=== PATIENT | male | born 2000 | race Caucasian/White ===

== ENCOUNTER 2022-10-21 01:17 | Emergency (ER) | payer MEDICARE ==
[~2022-10-21] VITALS: Ht 160 cm; Wt 73.0 kg
[2022-10-21 04:35] VITALS: BP 122/82
== END 2022-10-21 04:42 | disposition home or self-care (01) ==
LOC: ER 01:17
DX: F07.81 Postconcussional syndrome (principal); S01.81XA Laceration without foreign body of other part of head, initial encounter; Y00.XXXA Assault by blunt object, initial encounter; Y93.89 Activity, other specified; Y92.488 Other paved roadways as the place of occurrence of the external cause
CPT/HCPCS: 99284